=== PATIENT | male | born 1955 | race Caucasian/White ===

== ENCOUNTER → 2023-12-05 11:48 | Outpatient (REF) | payer OTHER, SELFPAY | LOC: HWRAD 11:48 | PROVIDERS: ATTENDING PHYSICIAN Physician Assistant Medical | DX: I10 Essential (primary) hypertension (principal) | CPT/HCPCS: 73030 ==

== ENCOUNTER → 2024-03-22 12:38 | Outpatient (REF) | payer OTHER, SELFPAY | LOC: HWRCS 12:38 | PROVIDERS: ATTENDING PHYSICIAN Nuclear Medicine Nuclear Cardiology; FAMILY PHYSICIAN Physician Assistant Medical | DX: I70.0 Atherosclerosis of aorta (principal); I77.810 Thoracic aortic ectasia | CPT/HCPCS: 93306 ==

== ENCOUNTER 2024-08-03 13:24 | Emergency (ER) | payer OTHER, SELFPAY ==
[2024-08-03 13:41] VITALS: BP 158/88
[2024-08-03 13:45] VITALS: BP 158/88
[2024-08-03 13:53] VITALS: BMI 33.5
--- NOTE | 2024-08-03 14:01 | ED.GENMED ---
History of Present Illness
General
Chief Complaint: Post Operative Problem(s)
Source: patient and spouse
Exam Limitations: none
Time Seen by Provider: 08/03/24 13:37
History of Present Illness
History of Present Illness:
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 Started with bleeding around 11. Moderate amount of oozing since then. No shortness of breath trouble swallowing or breathing.
Review of Systems
Review of Systems
All Other Systems: Not applicable
Constitutional: Denies fever
Respiratory: Reports no symptoms
Cardiac: Reports no symptoms
Phy Exam
Physical Exam
Physical Exam:
GENERAL: Alert and oriented in no apparent distress
EYE: Orbits normal.
NECK: Supple, minimal swelling to the left anterior lateral neck with a approximately 10 cm laceration with an area of ecchymosis and continued oozing between the stitches
ENT: Speech normal. No drooling or stridor
CARDIAC: Regular rate and rhythm without any obvious murmurs.
LUNGS: Clear breath sounds,normal
NEUROLOGICAL: Alert and oriented , grossly non-focal
SKIN: Warm and dry
PSYCH: Normal and appropriate interaction.
Course
Vital Signs
Initial and Last Documented VS:
Initial Vital Signs
BP Pulse Ox
158/88 97
08/03/24 13:41 08/03/24 13:41
Last Documented Vital Signs
Pulse Resp BP Pulse Ox
85 17 158/88 96
08/03/24 14:00 08/03/24 14:00 08/03/24 13:45 08/03/24 13:45
*Pulse Oximetry
Patient hypoxic: no
*Critical Care Note
Total Time (30-74mins, 75-104mins- exclusive of procedures): Not Applicable
Update Note
Update Note:
Continuous direct pressure has been placed on the wound for approximately 15 minutes while in the room. Contacting dermatology. We have gotten a hold of them and they can see him in the office in about 45 minutes. We will continue observation for
the next 10 to 15 minutes and if remains stable we will allow him to go to the office for definitive management.
Minimal oozing prior to sending to the office. Patient holding local pressure and doing well with this. No airway issues.
ED Attending Note
-
Portions of this chart may have been created with voice recognition software.� Occasional wrong word or��sound alike� substitutions may have occurred due to the inherent limitations of voice recognition software.
Discharge Plan
Departure
Patient Disposition: Home (Routine Discharge)
Date of Disposition: 08/03/24
Time of Disposition: 14:12
Patient with high blood pressure during this ER visit?: Yes
Discharge Problem:
Postoperative bleeding
Instructions: Bleeding After Surgery, BLOOD PRESSURE
Referrals:
Gris Troncoso PA-C [Family Provider] -
Activity Restrictions/Additional Instructions:
Keep direct pressure on and go directly to the office
Interventions
Interventions:
*Risk Screen - Suicide Last Done: 08/03/24 13:49
*General Assessment Last Done: 08/03/24 13:49
*Neglect/Abuse Screening Last Done: 08/03/24 13:49
ED- Fall Risk Assessment Last Done: 08/03/24 13:49
*ED COVID-19 Vaccine History Last Done: 08/03/24 13:49
*Nursing Disposition Last Done: 08/03/24 14:10
ED-Skin Assessment Last Done: 08/03/24 13:49
Discharge Date and Time
Print Language: MOHAWK
[2024-08-03 14:10] VITALS: BP 124/75
== END 2024-08-03 14:27 | disposition home or self-care (01) ==
LOC: EMR 13:24
PROVIDERS: EMERGENCY PHYSICIAN Emergency Medicine; FAMILY PHYSICIAN Physician Assistant Medical
DX: L76.21 Postprocedural hemorrhage of skin and subcutaneous tissue following a dermatologic procedure (principal); Y83.8 Other surgical procedures as the cause of abnormal reaction of the patient, or of later complication, without mention of misadventure at the time of the procedure
CPT/HCPCS: 99282

== ENCOUNTER 2025-01-26 22:08 | Emergency (ER) | payer OTHER, SELFPAY ==
[2025-01-26 22:15] VITALS: BP 177/110
[2025-01-26 22:47] LABS: % Basophils 0.4 % (0-2); % Eosinophils 0.4 % (0-6); % Immature Granulocytes 0.3 % (0-0.5); % Lymphocytes 14.6 % (20.5-51.1); % Monocytes 7.2 % (1.7-9.3); % Neutrophils 77.1 % (42.2-75.2); Absolute Lymphocytes 1.3 10^3/uL (1.2-3.4); Absolute Monocytes 0.7 10^3/uL (0.1-0.6); Absolute Neutrophils 7.1 10^3/uL (1.4-6.5); Hematocrit 46.4 % (39.0-52.0); Hemoglobin 15.5 g/dL (13.0-18.0); Mean Corp Hgb Conc. 33.4 g/dL (33.0-37.0); Mean Corpuscular Hgb 28.8 pg (27.0-31.0); Mean Corpuscular Volume 86.1 fL (80.0-94.0); Mean Platelet Volume 8.6 fL (7.4-10.4); Nucleated Red Blood Cells % 0 % (-); Platelet Count 250 10^3/uL (130-400); Red Blood Cell Count 5.39 10^6/uL (4.70-6.10); White Blood Cell Count 9.2 10^3/uL (4.8-10.8)
[2025-01-26 23:06] LABS: ALT (SGPT) 17 U/L (0-50); AST (SGOT) 23 U/L (17-59); Alkaline Phosphatase 36 U/L (38-126); Blood Urea Nitrogen 17 mg/dl (9-20); Calcium 9.8 mg/dl (8.4-10.2); Carbon Dioxide 27 mmol/L (22-30); Chloride 106 mmol/L (98-107); Glucose 169 mg/dl (70-99); Potassium 4.2 mmol/L (3.5-5.1); Sodium 143 mmol/L (135-145); Total Bilirubin 0.5 mg/dl (0.2-1.3); Total Protein 8.1 g/dl (6.3-8.2); eGFR > 60.00
[2025-01-26 23:16] LABS: Troponin I < 0.012 ng/ml
[2025-01-27 01:04] VITALS: BP 164/88
--- NOTE | 2025-01-27 01:46 | ED.GENMED ---
History of Present Illness
General
Chief Complaint: Blood Pressure Problem
Source: patient
Exam Limitations: none
Time Seen by Provider: 01/27/25 01:45
Nursing documentation reviewed up to this point in time: agreed with
History of Present Illness
History of Present Illness:
This is a 69-year-old male with a past medical history of hypertension, diabetes, who presents emergency department today with concerns of high blood pressure. Patient reports that he was driving home straight from [place] 18 hours straight when he
started to feel tired and started to take caffeine to help with this. Patient reports that he had 3 cups of coffee, and 5 doses of 5-hour energy. Patient reports that after this, he started to feel tremulous and felt like 'things are vibrating
beneath him '. Patient reports that when he got home, he started to feel a bit better but he checked his blood pressure and noticed systolically was in the 200s. Normally his blood pressures in systolically 120s to 130s. Patient reports that he
decided to present to the ER. Patient does take medications for his blood pressure and he denies any changes to his blood pressure medications recently. Patient is a follow-up with a primary care provider in [place] [facility] in a few weeks.
Currently, patient is asymptomatic. He denies tremors, he denies chest pain, he denies palpitations. He denies headaches. He denies dizziness or lightheadedness.
Review of Systems
Review of Systems
All Other Systems: ROS reviewed and negative except as documented in HPI and ROS
Phy Exam
Physical Exam
Physical Exam:
General: Patient is well appearing and in no acute distress; non-toxic
Skin: Warm and dry, no rashes or lesions
Head: Normocephalic, atraumatic
Eyes: Sclera non-icteric. EOMs intact.
Cardiac: Regular rate and rhythm, no murmurs
Peripheral Vascular: No lower extremity swelling or edema
Pulm: Normal respiratory effort,, no wheezes, rales, rhonchi
Abdomen: No abdominal tenderness to palpation
Neuro: CN II-XII intact, no focal neurologic deficits. Normal finger-nose, [id number].
Psychiatric: Appropriate mood and affect.
Course
Orders/Labs/Results
Orders:
Orders
01/26/25 22:19
Electrocardiogram (*1) Urgent
Reason for Study: Hypertension, Benign
01/26/25 22:20
EKG- Treatment ONCE
01/26/25 22:33
Complete Blood Count/With Diff Urgent
Comprehensive Metabolic Panel Urgent
Troponin I Urgent
Abnormal Lab Results
01/26/25
22:33
Absolute Neuts (auto) 7.1 H 10^3/uL
(1.4-6.5)
Absolute Monos (auto) 0.7 H 10^3/uL
(0.1-0.6)
Neutrophils % 77.1 H %
(42.2-75.2)
Lymphocytes % 14.6 L %
(20.5-51.1)
Glucose 169 H mg/dl
(70-99)
Alkaline Phosphatase 36 L U/L
(38-126)
01/26/25 22:33
01/26/25 22:33
Vital Signs
Initial and Last Documented VS:
Initial Vital Signs
Temp Pulse Resp BP Pulse Ox
98.0 F 92 20 177/110 97
01/26/25 22:15 01/26/25 22:15 01/26/25 22:15 01/26/25 22:15 01/26/25 22:15
Last Documented Vital Signs
Temp Pulse Resp BP Pulse Ox
98.0 F 89 20 158/86 98
01/26/25 22:15 01/27/25 02:10 01/27/25 02:10 01/27/25 02:10 01/27/25 02:10
MDM/Problems Addressed
Differential Diagnosis Includes:
Differentials include essential hypertension, caffeine toxicity/side effect, ACS etc.
MDM/Problems Addressed:
69-year-old male presents emergency department today with concerns of hypertension following drinking lots of caffeinated drinks. Patient reports that he was driving straight home from [place] and started to feel fatigued when he took multiple
doses of caffeine. Patient reports he started to feel tremulous. He notes his blood pressure was elevated. His blood pressure has come down without acute intervention. Patient states he is feeling better is asymptomatic. His CBC and CMP are
unremarkable. His troponin is undetectable. His EKG shows normal sinus rhythm with no ischemic changes. Suspect that patient's blood pressure and symptoms are likely related to the excessive doses of caffeine he did consume today. No concern for
acute cardiopulmonary process. Advised patient to continue to take his blood pressure medications and to see his primary care provider as scheduled, patient stable for discharge.
Chronic conditions affecting care:
Hypertension, anemia, diabetes
*Pulse Oximetry
SaO2: 96
Oxygen Mode of Delivery: Room air
Patient hypoxic: no
*Critical Care Note
Total Time (30-74mins, 75-104mins- exclusive of procedures): Not Applicable
Data Reviewed
Review of Other/Old Records Reveals: Records (Reviewed ER physician recommendation from 08/03/2024 patient seen for squamous cell surgery and had persistent bleeding) and Discharge Summary (No discharge summaries in [facility] to review)
Source: patient and records
ED Attending Note
-
Portions of this chart may have been created with voice recognition software.� Occasional wrong word or��sound alike� substitutions may have occurred due to the inherent limitations of voice recognition software.
Discharge Plan
Departure
Patient Disposition: Home (Routine Discharge)
Date of Disposition: 01/27/25
Time of Disposition: 02:01
Patient with high blood pressure during this ER visit?: Yes
Condition: Good
Discharge Problem:
Hypertension, Adverse effect of caffeine
Instructions: High Blood Pressure (DC), Caffeine, BLOOD PRESSURE
Referrals:
Johnathan Bain MD [Family Provider, [facility]]
Activity Restrictions/Additional Instructions:
Please follow up with your primary care provider and your mine geologist.
Please continue to monitor your blood pressure.
PLEASE RETURN TO THE ER SHOULD YOU DEVELOP CHEST PAIN, SHORTNESS OF BREATH, NAUSEA OR VOMITING, FEVERS CHILLS, HEADACHES, DIZZINESS, LIGHTHEADEDNESS, OR ANY OTHER SIGNS OR SYMPTOMS WORRISOME TO YOU.
Interventions
Interventions:
*Risk Screen - Suicide Last Done: 01/27/25 01:05
*General Assessment Last Done: 01/26/25 22:15
*Neglect/Abuse Screening Last Done: 01/27/25 01:05
*ED- Fall Risk Assessment Last Done: 01/27/25 01:05
*ED COVID-19 Vaccine History Last Done: 01/27/25 01:05
*Nursing Disposition Last Done: 01/27/25 02:10
ED- Cardiac Assessment Last Done: 01/27/25 01:30
ED- Neurological Assessment Last Done: 01/27/25 01:30
ED- Pulmonary Assessment Last Done: 01/27/25 01:30
Discharge Date and Time
Discharge Date/Time: 01/27/25 02:12
Print Language: LITHUANIAN
[2025-01-27 02:10] VITALS: BP 158/86
== END 2025-01-27 02:12 | disposition home or self-care (01) ==
LOC: EMR 22:08
PROVIDERS: Emergency Medicine; EMERGENCY PHYSICIAN Emergency Medicine; FAMILY PHYSICIAN Family Medicine
DX: I10 Essential (primary) hypertension (principal); T43.615A Adverse effect of caffeine, initial encounter; X58.XXXA Exposure to other specified factors, initial encounter; E11.9 Type 2 diabetes mellitus without complications; D64.9 Anemia, unspecified
CPT/HCPCS: 99284; 80053; 84484; 85025; 93005